=== PATIENT | female | born 1995 | race African-American/Black ===

== ENCOUNTER 2017-04-04 20:23 | Emergency (ER) | payer OTHER ==
[~2017-04-04] VITALS: Ht 165.1 cm; Wt 69.0 kg
[2017-04-04 20:25] VITALS: BP 109/61; PULSE 68; RESP 16; TEMP 98.1; O2SAT 100
[2017-04-04] MEDS ORDERED: CYCLOBENZAPRINE HCL 10 MG TAB PO ONE (22:30)
[2017-04-04] MEDS ORDERED: IBUPROFEN 800 MG TAB PO ONE (22:30)
[2017-04-04] MEDS ORDERED: IBUP1TAB7 PO (22:38)
[2017-04-04] MEDS ORDERED: CYCL10TA PO (22:38)
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
== END 2017-04-04 22:51 | disposition home or self-care (01) ==
LOC: NEPD 20:23
DX: S16.1XXA Strain of muscle, fascia and tendon at neck level, initial encounter (principal); R51 Headache; V49.49XA Driver injured in collision with other motor vehicles in traffic accident, initial encounter
CPT/HCPCS: 99283

== ENCOUNTER 2017-04-23 21:06 | Emergency (ER) | payer OTHER, MEDICAID ==
[~2017-04-23] VITALS: Ht 165.1 cm; Wt 68.0 kg
[~2017-04-23 21:06] MED LIST: CYCL10TA PO; IBUP1TAB7 PO
[2017-04-23 21:08] VITALS: BP 148/83; PULSE 75; RESP 16; TEMP 98.9; O2SAT 99
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
== END 2017-04-23 22:42 | disposition home or self-care (01) ==
LOC: NEPK 21:06
DX: M54.6 Pain in thoracic spine (principal)
CPT/HCPCS: 71020; 99283